=== PATIENT | female | born 1975 | race Caucasian/White ===

== ENCOUNTER → 2021-01-13 | Outpatient (CLI) | payer OTHER | END | disposition home or self-care (01) | LOC: LAB SHORT 14:12 | DX: K13.79 Other lesions of oral mucosa (principal) | CPT/HCPCS: 87081 ==

== ENCOUNTER → 2022-12-06 | Outpatient (CLI) | payer OTHER | LOC: LAB 16:05 → LAB SHORT 16:05 | DX: N39.0 Urinary tract infection, site not specified (principal) | CPT/HCPCS: 87077; 87086; 87186 ==

== ENCOUNTER 2024-03-16 09:02 | Emergency (ER) | payer OTHER ==
[~2024-03-16] VITALS: Ht 162.6 cm; Wt 67.6 kg
[2024-03-16] MEDS ORDERED: AMOX-CLAV 875-1 EAC5 PO (10:23)
[2024-03-16] MEDS ORDERED: HYDROCODONE-AC1 EA19 PO (10:24)
[2024-03-16] MEDS ORDERED: PAROEX473 ML MM (10:24)
[2024-03-16] MEDS ORDERED: PROG100 PO (10:27)
[2024-03-16] MEDS ORDERED: ESTRADIOL1 M1 PO (10:27)
[2024-03-16] MEDS ORDERED: VITAMIN D5000 UNIT PO (10:28)
[2024-03-16] MEDS ORDERED: LEVSOD137 PO (10:28)
[2024-03-16] MEDS ORDERED: ZANAFLEX413 PO (10:29)
[2024-03-16] MEDS ORDERED: Ketorolac Tromethamine 30mg Vial IV ONE (10:35)
[2024-03-16 10:38] LABS: Albumin, Blood 3.7 g/dL (3.4-5.0); Albumin/Globulin Ratio 0.8 (0.8-1.8); Bilirubin, Total 0.7 mg/dL (0.1-1.0); Bun/Creatinine Ratio 19.9 (12.0-20.0); Calcium, Blood 9.1 mg/dL (8.5-10.1); Creatinine, Blood 0.75 mg/dL (0.40-1.00); Globulin, Blood 4.9 g/dL (2.2-4.0); Potassium, Blood 4.4 mmol/L (3.5-5.5); Total Protein, Blood 8.6 g/dL (6.4-8.2)
[2024-03-16 10:40] LABS: BASOPHILS ABSOLUTE AUTO 0.02 K/mm3 (0.00-0.23); BASOPHILS PERCENT AUTO 1 % (0-2); EOSINOPHILS PERCENT AUTO 0 % (0-6); Hematocrit 40.5 % (33.0-51.0); Hemoglobin 13.6 g/dL (11.5-16.0); Mean Corpuscular HGB 30.3 pg (26.0-34.0); Mean Corpuscular HGB Conc 33.6 g/dL (31.5-36.5); Mean Corpuscular Volume 90 fL (80-100); Mean Platelet Volume 8.9 fL (9.1-12.4); Platelet Count 362 K/mm3 (150-400); RDW Coefficient Variation 11.5 % (11.7-14.2); RDW Standard Deviation 37.8 fL (35.1-46.3); Red Blood Cell Count 4.49 M/mm3 (3.80-5.20); White Blood Cell Count 1.62 K/mm3 (4.00-11.30)
[2024-03-16 10:43] LABS: IMMATURE GRAN PERCENT AUTO 0 % (0-1); LYMPHOCYTES ABSOLUTE AUTO 0.67 K/mm3 (0.84-5.20); LYMPHOCYTES PERCENT AUTO 41 % (21-46); MONOCYTES ABSOLUTE AUTO 0.65 K/mm3 (0.16-1.47); MONOCYTES PERCENT AUTO 40 % (4-13); NEUTROPHILS ABSOLUTE AUTO 0.28 K/mm3 (1.96-9.15); NEUTROPHILS PERCENT AUTO 17 % (41-73)
[2024-03-16] MEDS ORDERED: Clindamycin HCl 150 MG Cap PO ONE (12:20)
[2024-03-16 12:25] VITALS: BP 140/67
[2024-03-16] MEDS ORDERED: CLIN150 PO (12:28)
[2024-03-16] MEDS ORDERED: AMOCLA875 PO (12:28)
== END 2024-03-16 12:34 | disposition home or self-care (01) ==
LOC: ER 09:02
PROVIDERS: Physician Assistant
DX: K04.7 Periapical abscess without sinus (principal); L03.211 Cellulitis of face; D70.9 Neutropenia, unspecified; E03.9 Hypothyroidism, unspecified; Z86.2 Personal history of diseases of the blood and blood-forming organs and certain disorders involving the immune mechanism; Z79.899 Other long term (current) drug therapy; Z88.1 Allergy status to other antibiotic agents; Z88.2 Allergy status to sulfonamides; Z88.8 Allergy status to other drugs, medicaments and biological substances
CPT/HCPCS: 70487; 80053; 85025; 96374-59; 99283-25; A9270; J1885; Q9967

== ENCOUNTER → 2024-04-12 | Outpatient (CLI) | payer OTHER ==
[~2024-04-12] MED LIST: AMOCLA875 PO; AMOX-CLAV 875-1 EAC5 PO; CLIN150 PO; ESTRADIOL1 M1 PO; HYDROCODONE-AC1 EA19 PO; LEVSOD137 PO; PAROEX473 ML MM; PROG100 PO; VITAMIN D5000 UNIT PO; ZANAFLEX413 PO
[2024-04-12 18:50] LABS: BASOPHILS ABSOLUTE AUTO 0.07 K/mm3 (0.00-0.23); BASOPHILS PERCENT AUTO 3 % (0-2); EOSINOPHILS ABSOLUTE AUTO 0.08 K/mm3 (0.00-0.68); EOSINOPHILS PERCENT AUTO 3 % (0-6); Hematocrit 39.1 % (33.0-51.0); Hemoglobin 13.2 g/dL (11.5-16.0); IMMATURE GRAN ABSOLUTE AUTO 0.01 K/mm3 (0.00-0.10); IMMATURE GRAN PERCENT AUTO 0 % (0-1); LYMPHOCYTES ABSOLUTE AUTO 1.77 K/mm3 (0.84-5.20); LYMPHOCYTES PERCENT AUTO 65 % (21-46); MONOCYTES ABSOLUTE AUTO 0.64 K/mm3 (0.16-1.47); MONOCYTES PERCENT AUTO 24 % (4-13); Mean Corpuscular HGB 30.6 pg (26.0-34.0); Mean Corpuscular HGB Conc 33.8 g/dL (31.5-36.5); Mean Corpuscular Volume 91 fL (80-100); Mean Platelet Volume 9.5 fL (9.1-12.4); NEUTROPHILS ABSOLUTE AUTO 0.14 K/mm3 (1.96-9.15); NEUTROPHILS PERCENT AUTO 5 % (41-73); Platelet Count 288 K/mm3 (150-400); RDW Standard Deviation 39.9 fL (35.1-46.3); Red Blood Cell Count 4.31 M/mm3 (3.80-5.20); White Blood Cell Count 2.71 K/mm3 (4.00-11.30)
== END ==
LOC: LAB SHORT 17:10 → LAB 17:10
PROVIDERS: Nurse Practitioner Family
DX: D72.819 Decreased white blood cell count, unspecified (principal); E61.1 Iron deficiency; K04.7 Periapical abscess without sinus; K21.9 Gastro-esophageal reflux disease without esophagitis; M32.9 Systemic lupus erythematosus, unspecified; R79.9 Abnormal finding of blood chemistry, unspecified; Z76.89 Persons encountering health services in other specified circumstances
CPT/HCPCS: 82728; 85025; 85060